=== PATIENT | female | born 1935 | race Caucasian/White ===

== ENCOUNTER 2017-06-05 14:10 | Emergency (ER) | payer MEDICARE ==
[~2017-06-05] VITALS: Ht 152.4 cm; Wt 80.0 kg
[~2017-06-05 14:10] MED LIST: AMLODIPINE5 MG PO; ASPIRIN LOW DOS81 M2 PO; C 250 PO; CALCIUM 600 +600 MG PO; FISH OIL1000 MG PO; LOSARTAN POT50 MG PO; LYRICA50 MG PO; METFORMIN500 MG PO; NAPROSYN500 MG PO; OXYCODONE/ACETA1 TA4 PO; RANITIDINE150 M1 PO; SIMVASTATIN40 MG PO; VITAMIN D1000 UNIT PO
[2017-06-05 15:15] LABS: HEMATOCRIT 36.5 % (37.0-47.0); IMMATURE GRANULOCYTES 0.5 % (0.0-1.0); MEAN CELL VOLUME 92.9 fL CALC (80.0-100.0); MEAN CORPUSCULAR HGB 30.5 pG CALC (26.0-32.0); MEAN CORPUSCULAR HGB CONC 32.9 g/L CALC (32.0-36.0); NEUT# 5.38 thou/uL (2.00-7.15); RED BLOOD COUNT 3.93 mill/uL (4.20-5.60); RED CELL DISTRI WIDTH 12.9 % (11.5-15.5)
[2017-06-05 15:38] LABS: ALBUMIN 4.2 g/dL (3.2-5.0); ALKALINE PHOSPHATASE 74 u/l (38-126); ANION GAP 16 (6-22 (CALC)); BILIRUBIN, TOTAL 0.4 mg/dL (0.0-1.4); BUN 21 mg/dL (8-23); BUN/CREATININE RATIO 17 (12-20 (CALC)); CALCIUM 10.5 mg/dL (8.4-10.2); CARBON DIOXIDE 25 mmol/l (22-30); CHLORIDE 98 mmol/l (95-108); CREATININE 1.2 mg/dL (0.5-1.0); GFR 43 ML/MIN (>=60 (CALC)); GFR FOR AFR.AMER. 52 ML/MIN (>=60 (CALC)); GLUCOSE 163 mg/dL (82-115); POTASSIUM 4.4 mmol/l (3.5-5.1); SGOT/AST 22 u/l (9-36); SGPT/ALT 33 u/l (11-66); SODIUM 135 mmol/l (137-146); TOTAL PROTEIN 6.8 g/dL (6.3-8.2)
[2017-06-05 15:50] LABS: MYOGLOBIN 91 ng/mL (0 - 62)
[2017-06-05] MEDS ORDERED: MEDDOSEPAK PO (16:29)
[2017-06-05] MEDS ORDERED: VENTOLIN HFA IN (16:29)
[2017-06-05] MEDS ORDERED: AMOXICILLIN500 M2 PO (16:29)
[2017-06-05 16:39] VITALS: BP 176/73
== END 2017-06-05 16:53 | disposition home or self-care (01) ==
LOC: ED 14:10
PROVIDERS: Emergency Medicine
DX: J44.1 Chronic obstructive pulmonary disease with (acute) exacerbation (principal); R00.0 Tachycardia, unspecified; R05 Cough; I10 Essential (primary) hypertension; E11.9 Type 2 diabetes mellitus without complications; Z79.84 Long term (current) use of oral hypoglycemic drugs

== ENCOUNTER 2019-05-12 09:45 | Emergency (ER) | payer MEDICARE ==
[~2019-05-12] VITALS: Ht 149.9 cm; Wt 75.0 kg
[~2019-05-12 09:45] MED LIST changes: +AMOXICILLIN500 M2 PO; +MEDDOSEPAK PO; +VENTOLIN HFA IN
[2019-05-12 10:54] LABS: HEMATOCRIT 37.5 % (37.0-47.0); HEMOGLOBIN 12.8 g/dl (12.0-16.0); MEAN CELL VOLUME 89.1 fL CALC (80.0-100.0); MEAN CORPUSCULAR HGB 30.4 pG CALC (26.0-32.0); MEAN CORPUSCULAR HGB CONC 34.1 g/L CALC (32.0-36.0); NEUT# 6.96 thou/uL (2.00-7.15); RED BLOOD COUNT 4.21 mill/uL (4.20-5.60); RED CELL DISTRI WIDTH 13.2 % (11.5-15.5); URINE BILIRUBIN - DIPSTICK NEGATIVE (NEGATIVE); URINE BLOOD DIPSTICK NEGATIVE (NEGATIVE); URINE COLOR YELLOW; URINE GLUCOSE - DIPSTICK NEGATIVE (NEGATIVE); URINE KETONE NEGATIVE (NEGATIVE); URINE LEUK ESTERASE NEGATIVE (NEGATIVE); URINE NITRITE - DIPSTICK NEGATIVE (Negative); URINE PH 6.5 (4.5-8.0); URINE SPECIFIC GRAVITY <=1.005; URINE UROBILINOGEN - DIPSTICK 0.2 E.U./dL (0.2)
[2019-05-12 10:55] LABS: URINE PROTEIN - DIPSTICK Trace mg/dL (NEG-TRACE)
[2019-05-12 11:06] LABS: ALKALINE PHOSPHATASE 65 u/l (38-126); BILIRUBIN, TOTAL 0.5 mg/dL (0.0-1.4); BUN 39 mg/dL (8-23); BUN/CREATININE RATIO 41 (12-20 (CALC)); CARBON DIOXIDE 27 mmol/l (22-30); CHLORIDE 93 mmol/l (95-108); CREATININE 0.9 mg/dL (0.5-1.0); GFR 60 ML/MIN (>=60 (CALC)); GFR FOR AFR.AMER. > 60 ML/MIN (>=60 (CALC)); POTASSIUM 4.7 mmol/l (3.5-5.1); SGOT/AST 28 u/l (9-36)
[2019-05-12 11:10] LABS: ALBUMIN 3.3 g/dL (3.2-5.0); ANION GAP 10 (6-22 (CALC)); SODIUM 125 mmol/l (137-146)
[2019-05-12 11:18] LABS: MYOGLOBIN 191 ng/mL (0 - 62)
[2019-05-12 12:47] VITALS: BP 164/83
== END 2019-05-12 14:01 | disposition home or self-care (01) ==
LOC: ED 09:45
PROVIDERS: Emergency Medicine
DX: M47.22 Other spondylosis with radiculopathy, cervical region (principal); E87.1 Hypo-osmolality and hyponatremia; E11.9 Type 2 diabetes mellitus without complications; E86.0 Dehydration; J44.9 Chronic obstructive pulmonary disease, unspecified; Z86.73 Personal history of transient ischemic attack (TIA), and cerebral infarction without residual deficits; Z79.84 Long term (current) use of oral hypoglycemic drugs

== ENCOUNTER 2022-03-17 16:09 | Emergency (ER) | payer MEDICARE ==
[~2022-03-17] VITALS: Ht 149.9 cm; Wt 69.1 kg
[2022-03-17] VITALS (9 sets, daily range): BP systolic 133–190; BP diastolic 51–86
== END 2022-03-17 18:19 | disposition home or self-care (01) ==
LOC: ED 16:09
DX: M25.561 Pain in right knee (principal); E11.9 Type 2 diabetes mellitus without complications; J44.9 Chronic obstructive pulmonary disease, unspecified; W01.0XXA Fall on same level from slipping, tripping and stumbling without subsequent striking against object, initial encounter; Z86.73 Personal history of transient ischemic attack (TIA), and cerebral infarction without residual deficits; Z79.84 Long term (current) use of oral hypoglycemic drugs